=== PATIENT | male | born 1970 | race Caucasian/White ===

== ENCOUNTER → 2020-07-17 | Outpatient (CLI) | payer MEDICARE ==
--- NOTE | 2020-07-17 13:50 | XR ---
EXAMINATION TYPE: XR cervical spine limited DATE OF EXAM: 07/17/2020 COMPARISON: None HISTORY: Pain TECHNIQUE: Three-view cervical spine FINDINGS: There is some spondylosis and cervical spurring C5 C6-7. Posterior spinal lamellar line is intact. Odontoid is nondiagnostic due to overlying occiput. Prevertebral space is normal. IMPRESSION: 1. Degenerative changes present C5-6 C6-7 2. No acute osseous abnormality.
--- NOTE | 2020-07-17 16:29 | XR ---
EXAMINATION TYPE: XR lumbar spine 2 or 3V DATE OF EXAM: 07/17/2020 COMPARISON: None HISTORY: Pain TECHNIQUE: Three-view lumbar spine FINDINGS: Degenerative disc changes are present L4-5 L5-S1. Vertebral body spurring is noted L3-L5. There 5 lumbar-type vertebral bodies. Pedicles are intact. Vertebral body heights are preserved. IMPRESSION: 1. Degenerative disc changes L4-5 L5-S1. 2. Spondylosis
== END | disposition home or self-care (01) ==
LOC: RADXRMAIN 08:59
PROVIDERS: ATTEND Chiropractor
DX: M51.36 Other intervertebral disc degeneration, lumbar region (principal); M51.37 Other intervertebral disc degeneration, lumbosacral region; M47.812 Spondylosis without myelopathy or radiculopathy, cervical region; M47.816 Spondylosis without myelopathy or radiculopathy, lumbar region
CPT/HCPCS: 72040; 72100

== ENCOUNTER 2020-08-14 10:20 | Emergency (ER) | payer MEDICARE ==
[2020-08-14 10:25] VITALS: RESP 18
[2020-08-14] MEDS ORDERED: lisinopriL 20 MG TAB PO STA (10:35)
[2020-08-14] MEDS ORDERED: SODIUM CHLORIDE 0.9% 500 ML 500 ML IV STA (10:50)
--- NOTE | 2020-08-14 10:53 | ED ---
General Adult HPI - General Source: patient, RN notes reviewed Mode of arrival: ambulatory Limitations: no limitations <Shun Wells - Last Filed: 08/14/20 12:13> <Ruby Orellana - Last Filed: 08/15/20 23:02> - General Chief complaint: ENT Stated complaint: Migrane,Sore Throat Time Seen by Provider: 08/14/20 10:29 - History of Present Illness Initial comments: 49-year-old male with a past medical history of hypertension presents to the emergency room for a chief complaint of headache. Patient has had a headache for the past 3 days. He has also had a slight sore throat as well. Denies fevers or chills. Denies cough congestion. Patient did recently move here 3 days ago and was using a propane heater. States the headache started around that time. Patient reports that he is getting his heating installed today. Patient states his CORTES is actually improving at this time Patient also has not taken his blood pressure medication in 3 days because he ran out of it.Patient has no other complaints at this time including shortness of breath, chest pain, abdominal pain, nausea or vomiting, or visual changes. (Shun Wells) - Related Data Home Medications Medication Instructions Recorded Confirmed Acetaminophen Tab [Tylenol Tab] 1,000 mg PO Q6HR PRN 08/14/20 08/14/20 lisinopriL 40 mg PO DAILY 08/14/20 08/14/20 Previous Rx's Medication Instructions Recorded lisinopriL [Zestril] 40 mg PO DAILY #30 tablet 08/14/20 Allergies Allergy/AdvReac Type Severity Reaction Status Date / Time No Known Allergies Allergy Verified 08/14/20 11:45 Review of Systems ROS Other: All systems not noted in ROS Statement are negative. <Shun Wells - Last Filed: 08/14/20 12:13> ROS Other: All systems not noted in ROS Statement are negative. <Ruby Orellana - Last Filed: 08/15/20 23:02> ROS Statement: Those systems with pertinent positive or pertinent negative responses have been documented in the HPI. Past Medical History Past Medical History: Hypertension History of Any Multi-Drug Resistant Organisms: None Reported Past Surgical History: No Surgical Hx Reported Past Psychological History: No Psychological Hx Reported Smoking Status: Current every day smoker Past Alcohol Use History: None Reported Past Drug Use History: None Reported <Shun Wells P - Last Filed: 08/14/20 12:13> General Exam Limitations: no limitations General appearance: alert, in no apparent distress Head exam: Present: atraumatic, normocephalic, normal inspection Eye exam: Present: normal appearance ENT exam: Present: normal exam, normal oropharynx (Uvula midline, no tonsillar exudates bilaterally), mucous membranes moist, TM's normal bilaterally, normal external ear exam Neck exam: Present: normal inspection, full ROM. Absent: tenderness, meningismus, lymphadenopathy Respiratory exam: Present: normal lung sounds bilaterally. Absent: respiratory distress, wheezes, rales, rhonchi, stridor Cardiovascular Exam: Present: regular rate, normal rhythm, normal heart sounds. Absent: systolic murmur, diastolic murmur, rubs, gallop, clicks GI/Abdominal exam: Present: soft, normal bowel sounds. Absent: distended, tenderness, guarding, rebound, rigid Neurological exam: Present: alert, oriented X3, normal gait Expanded Patient oriented to: Present: person, place, time Speech: Present: fluid speech Cranial nerves: EOM's Intact: Normal, Tongue Deviation: Normal, Nystagmus: Normal, Facial Sensation: Normal Cerebellar function: Heel to Moss: Normal Upper motor neuron: Pronator Drift: Normal Sensory exam: Upper Extremity Light Touch: Normal, Upper Extremity Pin Prick: Normal, Lower Extremity Light Touch: Normal, Lower Extremity Pin Prick: Normal Motor strength exam: RUE: 5, LUE: 5, RLE: 5, LLE: 5 <Shun Wells P - Last Filed: 08/14/20 12:13> Course Vital Signs 08/14/20 08/14/20 08/14/20 10:21 11:14 12:05 Temperature 99.1 F 98.1 F Pulse Rate 102 H 73 Respiratory 18 18 Rate Blood Pressure 191/118 143/87 142/100 O2 Sat by Pulse 99 97 Oximetry 08/14/20 12:16 Temperature Pulse Rate 80 Respiratory 18 Rate Blood Pressure 152/96 O2 Sat by Pulse 100 Oximetry EKG Findings - EKG Comments: EKG Findings:: Normal sinus rhythm, nonspecific ST T abnormalities, ventricular rate 83, KS interval 132, QTc 451, no evidence of ST elevation or depression <Shun Wells - Last Filed: 08/14/20 12:13> Medical Decision Making - Lab Data Result diagrams: 08/14/20 11:14 08/14/20 11:14 <Shun Wells - Last Filed: 08/14/20 12:13> - Lab Data Result diagrams: 08/14/20 11:14 08/14/20 11:14 <Ruby Orellana - Last Filed: 08/15/20 23:02> - Medical Decision Making Vitals are stable. Patient initially hypertensive over this did improve throughout his stay. Presenting for slight headaches over the past few days as well as high blood pressure and sore throat. States his throat was only sligh tly sore. Physical exam is unremarkable. No neurologic deficits. Patient was given his oral blood pressure medications which did improve his blood pressure to 143/87. Afebrile in the emergency room without history of fevers at home. CBC CMP is unremarkable. COVID neg. Carbon monoxide 9.6. Patient is a 1 pack per day smoker so this is only minimally high. It could be related to the kerosene heater so we recommend that he does not use it. Patient reevaluated, denying any headaches and at this time. Feels much better. Requesting a note to return to work. This will not be a problem for patient as he had his normal heating installed this morning. Patient was given a refill of his blood pressure medications. He will also be given a referral to primary care doctors. Recently moved to the area. He will return here for any worsening symptoms. I discussed this case with attending Dr. Orellana who agrees with this assessment and treatment plan. (Shun Wells) I was available for consultation in the emergency department. The history and physical exam were done by the midlevel provider. I was consulted for this patients care. I reviewed the case with the midlevel provider and based on their presentation of the patient, I agree with the assessment, medical decision making and plan of care as documented. Chart was dictated using [employer] dictation software. Attempts were made to correct any dictation errors however some typographical errors may persist. Patient was seen during a national state of emergency due to the Covid-19 pandemic. (Ruby Orellana) - Lab Data Lab Results 08/14/20 08/14/20 08/14/20 Range/Units 11:14 11:14 11:14 WBC 8.0 (3.8-10.6) k/uL RBC 4.24 L (4.30-5.90) m/uL Hgb 13.6 (13.0-17.5) gm/dL Hct 42.0 (39.0-53.0) % MCV 98.9 (80.0-100.0) fL MCH 32.2 (25.0-35.0) pg MCHC 32.5 (31.0-37.0) g/dL RDW 14.0 (11.5-15.5) % Plt Count 214 (150-450) k/uL MPV 7.0 Neutrophils % 56 % Lymphocytes % 34 % Monocytes % 5 % Eosinophils % 2 % Basophils % 0 % Neutrophils # 4.5 (1.3-7.7) k/uL Lymphocytes # 2.7 (1.0-4.8) k/uL Monocytes # 0.4 (0-1.0) k/uL Eosinophils # 0.2 (0-0.7) k/uL Basophils # 0.0 (0-0.2) k/uL Carbon Monoxide, Quant (<10.0) % Sodium 136 L (137-145) mmol/L Potassium 4.2 (3.5-5.1) mmol/L Chloride 106 (98-107) mmol/L Carbon Dioxide 25 (22-30) mmol/L Anion Gap 5 mmol/L BUN 10 (9-20) mg/dL Creatinine 0.62 L (0.66-1.25) mg/dL Est GFR (CKD-EPI)AfAm >90 (>60 ml/min/1.73 sqM) Est GFR (CKD-EPI)NonAf >90 (>60 ml/min/1.73 sqM) Glucose 153 H (74-99) mg/dL Calcium 10.2 (8.4-10.2) mg/dL Coronavirus (PCR) Not Detected (Not Detectd) 08/14/20 Range/Units 11:14 WBC (3.8-10.6) k/uL RBC (4.30-5.90) m/uL Hgb (13.0-17.5) gm/dL Hct (39.0-53.0) % MCV (80.0-100.0) fL MCH (25.0-35.0) pg MCHC (31.0-37.0) g/dL RDW (11.5-15.5) % Plt Count (150-450) k/uL MPV Neutrophils % % Lymphocytes % % Monocytes % % Eosinophils % % Basophils % % Neutrophils # (1.3-7.7) k/uL Lymphocytes # (1.0-4.8) k/uL Monocytes # (0-1.0) k/uL Eosinophils # (0-0.7) k/uL Basophils # (0-0.2) k/uL Carbon Monoxide, Quant 9.6 (<10.0) % Sodium (137-145) mmol/L Potassium (3.5-5.1) mmol/L Chloride (98-107) mmol/L Carbon Dioxide (22-30) mmol/L Anion Gap mmol/L BUN (9-20) mg/dL Creatinine (0.66-1.25) mg/dL Est GFR (CKD-EPI)AfAm (>60 ml/min/1.73 sqM) Est GFR (CKD-EPI)NonAf (>60 ml/min/1.73 sqM) Glucose (74-99) mg/dL Calcium (8.4-10.2) mg/dL Coronavirus (PCR) (Not Detectd) Disposition Is patient prescribed a controlled substance at d/c from ED?: No Time of Disposition: 12:16 <Shun Wells P - Last Filed: 08/14/20 12:13> <Ruby Orellana - Last Filed: 08/15/20 23:02> Clinical Impression: Hypertension, Headache Disposition: HOME SELF-CARE Condition: Good Instructions (If sedation given, give patient instructions): Acute Headache (ED) Additional Instructions: Please take your blood pressure medication as directed. Discontinue use of kerosene heater as this could be contributing to your headache. Follow-up with primary care doctor in one to 2 days. Return to the emergency room for any worsening symptoms. Prescriptions: lisinopriL [Zestril] 40 mg PO DAILY #30 tablet Referrals: Berry Pablo [STAFF PHYSICIAN] - 1-2 days
[2020-08-14 11:24] LABS: Basophils % (A) 0 %; Eosinophils # (A) 0.2 k/uL (0-0.7); Eosinophils % (A) 2 %; HGB 13.6 gm/dL (13.0-17.5); Lymphocytes # (A) 2.7 k/uL (1.0-4.8); Lymphocytes % (A) 34 %; MCH 32.2 pg (25.0-35.0); MCHC 32.5 g/dL (31.0-37.0); MCV 98.9 fL (80.0-100.0); Monocytes # (A) 0.4 k/uL (0-1.0); Monocytes % (A) 5 %; Neutrophils # (A) 4.5 k/uL (1.3-7.7); Neutrophils % (A) 56 %; Platelet Count 214 k/uL (150-450); RBC 4.24 m/uL (4.30-5.90)
[2020-08-14 11:32] LABS: African American GFR (CKD) >90 (>60 ml/min/1.73 sqM); Anion Gap 5 mmol/L; Blood Urea Nitrogen 10 mg/dL (9-20); Calcium 10.2 mg/dL (8.4-10.2); Carbon Dioxide 25 mmol/L (22-30); Chloride 106 mmol/L (98-107); Glucose 153 mg/dL (74-99); Non-African American GFR(CKD) >90 (>60 ml/min/1.73 sqM); Potassium 4.2 mmol/L (3.5-5.1); Sodium 136 mmol/L (137-145)
[2020-08-14 12:06] VITALS: TEMP 98.1
[2020-08-14 12:26] VITALS: BP 152/96; PULSE 80
== END 2020-08-14 12:20 | disposition home or self-care (01) ==
LOC: EC 10:20
DX: I10 Essential (primary) hypertension (principal); R51.9 Headache, unspecified; J02.9 Acute pharyngitis, unspecified; F17.210 Nicotine dependence, cigarettes, uncomplicated; Z20.822 Contact with and (suspected) exposure to COVID-19; Z79.899 Other long term (current) drug therapy
CPT/HCPCS: 36415; 80048; 82375; 85025; 87635; 93005; 99284